=== PATIENT | male | born 1965 | race Caucasian/White ===

== ENCOUNTER 2018-01-12 20:55 | Emergency (ER) | payer OTHER ==
--- OUTSIDE RECORDS SUMMARY | 2018-01-12 21:03 | XMS REPORT ---
:1965 External Reference #:[id number] Author Organization [facility] Address [address] [place] [address] Phone [phone] Care Team Providers Name Role Phone Lilia Toth M.D. Care Team Information Automatic Lehr Operator Unavailable Lilia Toth M.D. Primary Care Physician Unavailable Payers Type Date Identification Payment Subscriber Numbers Provider Health Maintenance Effective: Policy Number: Placido Sernagilbertosarah Organization (O) 08/04/2012 [id number] [facility] Group Number: [id number] [id number] Group Name: [facility] [place] [address] PayID: [id number] Problems Date Description Provider Status Onset: 01/02/2012 Anxiety state Micheal Bell M.D. Active Onset: 01/02/2012 Mild recurrent major depression Micheal Bell M.D. Active Onset: 09/14/2012 Paroxysmal supraventricular Micheal Bell M.D. Active tachycardia Onset: 05/27/2014 Hyperlipidemia Flaco Galeana M.D. Active Onset: 01/18/2016 Psychogenic impotence Osiris Mooney Active Onset: 07/25/2015 Psychogenic impotence Flaco Galeana M.D. Inactive Inactive: 05/29/2016 Family History Date Family Member(s) Problem(s) Comments General No early myocardial infarction or cerebrovascular accident less than age 60, no colon or prostate cancer history Father Coronary Artery Disease (CAD) CABG. 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 at bedtime Viagra 07/25/ Active Tablets 50mg 9tabs 1 by mouth F52.21 2014 as directed Osiris Vu Clonazepam 08/08/ Active Tablets 0.5mg 60tab one tab by F41.1 Lilia 2010 s mouth twice [place], a day as M.D. needed Mirtazapine / Active Tablets 45mg 30tab take 1 F41.1 Eleazar Olivares 0000 s tablet at [place], bedtime Metoprolol / Active Tablets ER 25mg 1 by mouth Unknown Succinate ER 0000 24HR every day per Dr Jean-Baptiste Physical 03/26/ Hx treatment M54.5 Lilia Therapy 2016 - and [place], 05/29/ evaluation M.D. 2016 low back pain Atorvastatin 05/27/ Hx Tablets 10mg 30tab 1 by mouth 272.4 Flaco Galeana, Calcium 2014 - s every day M.D. 2014 Atenolol 02/23/ Hx Tablets 25mg 90tab 1 po qd 427.0 Micheal Quinonez 2012 - brayden Bell M.D. 2013 Sertraline HCL 01/01/ Hx Tablets 25mg 90tab 1 po qhs 300.00 Micheal Quinonez 2011 - brayden Bell M.D. 2012 Azithromycin 01/28/ Hx Tablets 250mg 6tabs 2 po today 465.9 Micheal Quinonez 2010 - and 1 po x Jayna Bell 01/01/ days 2011 Atenolol 08/27/ Hx Tablets 25mg 90tab 1 po qd 427.0 Micheal Quinonez 2010 - brayden Bell M.D. 2011 Serzone 12/10/ Hx Tablets 200mg 0tabs 1 po QHS Family 2006 - Medicine 08/08/ 2010 [facility] Remeron 12/10/ Hx Tablets 45mg 0tabs 1 po qd Family 2005 - Medicine 08/08/ Associates 2010 [facility] Keflex 12/10/ Hx Capsules 500mg 20cap 1 po bid Eleazar Gutierrez 2005 - s [place]abbie[place]owie, 08/08/ M.D. 2010 Augmentin 02/26/ Hx Tablets 500mg;125 20tab one tablet Ronda R 2005 - mg s three times Ottoniel, 12/10/ daily as [employer] 2006 directed for ten days Bactroban 02/26/ Hx 30gm apply to Ronda R Cream 2005 - affected Ottoniel, 12/10/ areas daily [employer] 2005 as directed Anusol HC Supp 07/31/ Hx 12uni 1 supp bid Forest Chun 2000 - ts Jayna De La Torre 2005 Klonopin 04/27/ Hx 0.5mg 1 po bid Family 2000 - Medicine 12/10/ Associates 2005 [facility] Remeron Soltab 04/27/ Hx 30mg Sampl one qd Mal Quinonez 2000 - es14 Amira, 12/10/ M.D. 2006 Naprosyn 06/12/ Hx Tabs 500mg 30tab 1 bid With Mal Quinonez 1999 - s Food Darlow, 06/22/ M.D. 1999 Keflex 01/24/ Hx 5Oomg 20uni 1 PO bid Pedro Olivares 1999 - ts Midura, 06/12/ M.D. 1999 Claritin 07/24/ Hx 10mg 30uni 1 qd Ginny 1998 - ts Mirella, 04/27/ Afnp-C 2000 Paxil 07/10/ Hx 10mg 0unit 1 PO qd Eleazar Gutierrez 1998 - s Shani, 04/27/ M.D. 2000 Serzone 07/10/ Hx 200mg 0unit 1 PO QHS Eleazar Gutierrez 1998 - s Shani, 04/27/ M.D. 2000 Amoxicillin 07/10/ Hx 250mg 30uni 1 PO tid Eleazar Gutierrez 1998 - ts Gabbie[place]owie, 07/24/ M.D. 1998 Zyrtec 12/06/ Hx 10mg 50uni 1 PO qd Eleazar Gutierrez 1997 - ts Shani, 07/10/ M.D. 1998 Clarinex 10/17/ Hx 10mg 50uni 1 qd Eleazar Gutierrez 1997 - ts Breiman, 12/06/ M.DLorena 1997 Zoloft 06/01/ Hx 50mg 45uni 1 08/05 Tabs Eleazar Gutierrez 1996 - ts PO qd Breiman, 07/10/ M.D. 1998 Clonazepam / Hx Tablets 0.5mg 1 po qd qhs Unknown 0000 - 2010 Immunizations CPT Code Status Date Vaccine Lot # [id number] Given 07/09/2015 Tdap Tetanus, W Pertussis 09327 Given 02/26/2005 Td Immunization, For Use In Individuals 7 Years Or Older Vital Signs Date Vital Result Comment 12/22/2017 BP Systolic 128 mmHg BP Diastolic 80 mmHg Heart Rate 84 /min Body Temperature 98.8 F Respiratory Rate 16 /min Height 70.5 inches 5'10.50" measured 08/11/17 Weight 196.38 lb BMI (Body Mass Index) 27.8 kg/m2 08/11/2017 BP Systolic 132 mmHg BP Diastolic 76 mmHg Heart Rate 72 /min Body Temperature 98.4 F Respiratory Rate 16 /min Height 70.5 inches 5'10.50" measured 08/11/17 Weight 198.12 lb BMI (Body Mass Index) 28.0 kg/m2 05/29/2016 BP Systolic 138 mmHg BP Diastolic 80 mmHg Heart Rate 78 /min Body Temperature 98.6 F Respiratory Rate 16 /min Height 71.25 inches 5'11.25" measured 05/29/16 Weight 189.25 lb BMI (Body Mass Index) 26.2 kg/m2 03/26/2016 BP Systolic 140 mmHg BP Diastolic 84 mmHg Heart Rate 76 /min Body Temperature 98.4 F Respiratory Rate 16 /min Height 70.5 inches 5'10.50" Weight 194.00 lb BMI (Body Mass Index) 27.4 kg/m2 01/18/2016 BP Systolic 122 mmHg BP Diastolic 74 mmHg Heart Rate 88 /min Body Temperature 98.9 F Respiratory Rate 18 /min Height 70.5 inches 5'10.50" Weight 192.00 lb BMI (Body Mass Index) 27.2 kg/m2 07/25/2015 BP Systolic 100 mmHg BP Diastolic 80 mmHg Heart Rate 68 /min Body Temperature 97.8 F Respiratory Rate 16 /min Height 70.5 inches 5'10.50" Weight 193.00 lb BMI (Body Mass Index) 27.3 kg/m2 06/20/2015 BP Systolic 132 mmHg BP Diastolic 88 mmHg Heart Rate 68 /min Body Temperature 97.3 F Respiratory Rate 16 /min Height 70.5 inches 5'10.50" Weight 185.00 lb BMI (Body Mass Index) 26.2 kg/m2 09/02/2014 BP Systolic 130 mmHg BP Diastolic 90 mmHg Heart Rate 68 /min Body Temperature 97.6 F Respiratory Rate 16 /min Height 70.5 inches 5'10.50" Weight 185.00 lb BMI (Body Mass Index) 26.2 kg/m2 05/27/2014 BP Systolic 120 mmHg BP Diastolic 80 mmHg Heart Rate 64 /min Body Temperature 97.5 F Respiratory Rate 18 /min Height 70.5 inches 5'10.50" Weight 189.00 lb BMI (Body Mass Index) 26.7 kg/m2 05/11/2014 BP Systolic 122 mmHg BP Diastolic 84 mmHg Heart Rate 83 /min Body Temperature 98.0 F Respiratory Rate 16 /min O2 % BldC Oximetry 98 % Height 70.75 inches 5'10.75" Weight 188.12 lb BMI (Body Mass Index) 26.4 kg/m2 04/06/2014 BP Systolic 124 mmHg BP Diastolic 80 mmHg Heart Rate 66 /min Body Temperature 97.4 F Respiratory Rate 18 /min Height 70.75 inches 5'10.75" Weight 189.00 lb BMI (Body Mass Index) 26.5 kg/m2 03/15/2013 BP Systolic 116 mmHg BP Diastolic 76 mmHg Heart Rate 68 /min Body Temperature 98.4 F Respiratory Rate 18 /min Height 70.75 inches 5'10.75" Weight 185.00 lb BMI (Body Mass Index) 26.0 kg/m2 Right Visual Acuity Distance 20/30 no corrective lenses Left Visual Acuity Distance 20/25 no corrective lenses 09/14/2012 BP Systolic 108 mmHg BP Diastolic 80 mmHg Heart Rate 66 /min Body Temperature 96.6 F Height 70.75 inches 5'10.75" Weight 190.38 lb BMI (Body Mass Index) 26.7 kg/m2 03/13/2012 BP Systolic 136 mmHg BP Diastolic 70 mmHg Heart Rate 72 /min Body Temperature 97.2 F Height 70.75 inches 5'10.75" Weight 183.00 lb BMI (Body Mass Index) 25.7 kg/m2 01/02/2012 BP Systolic 128 mmHg BP Diastolic 80 mmHg Heart Rate 72 /min Body Temperature 97.8 F Height 70.75 inches 5'10.75" Weight 180.00 lb BMI (Body Mass Index) 25.3 kg/m2 01/28/2011 BP Systolic 120 mmHg BP Diastolic 80 mmHg Heart Rate 76 /min Body Temperature 98.2 F Respiratory Rate 12 /min O2 % BldC Oximetry 96 % Ra Height 70.75 inches 5'10.75" Weight 190.00 lb BMI (Body Mass Index) 26.7 kg/m2 12/18/2010 BP Systolic 130 mmHg BP Diastolic 80 mmHg Heart Rate 68 /min Body Temperature 97.9 F Respiratory Rate 16 /min Height 70.75 inches 5'10.75" Weight 190.00 lb BMI (Body Mass Index) 26.7 kg/m2 10/02/2010 BP Systolic 120 mmHg BP Diastolic 80 mmHg Heart Rate 68 /min Body Temperature 98.2 F Height 70.75 inches 5'10.75" measured Weight 194.00 lb BMI (Body Mass Index) 27.2 kg/m2 08/27/2010 BP Systolic 112 mmHg BP Diastolic 78 mmHg Heart Rate 78 /min Body Temperature 97.6 F Height 70.75 inches 5'10.75" measured Weight 191.00 lb BMI (Body Mass Index) 26.8 kg/m2 08/08/2010 BP Systolic 138 mmHg BP Diastolic 90 mmHg Heart Rate 102 /min Body Temperature 98.8 F Respiratory Rate 18 /min O2 % BldC Oximetry 98 % Height 70.75 inches 5'10.75" measured Weight 191.00 lb BMI (Body Mass Index) 26.8 kg/m2 07/21/2007 BP Systolic 114 mmHg BP Diastolic 68 mmHg Heart Rate 72 /min Body Temperature 97.1 F Height 71.00 inches 5'11" Weight 195.00 lb BMI (Body Mass Index) 27.2 kg/m2 11/21/2006 BP Systolic 150 mmHg BP Diastolic 90 mmHg Heart Rate 100 /min Body Temperature 100.0 F Height 71.00 inches 5'11" Weight 190.00 lb BMI (Body Mass Index) 26.5 kg/m2 12/20/2005 BP Systolic 112 mmHg BP Diastolic 80 mmHg Heart Rate 76 /min Body Temperature 98.2 F Height 71.00 inches 5'11" Weight 192.00 lb BMI (Body Mass Index) 26.8 kg/m2 12/18/2005 Heart Rate 80 /min Body Temperature 98.5 F Height 71.00 inches 5'11" Weight 192.00 lb BMI (Body Mass Index) 26.8 kg/m2 12/10/2005 BP Systolic 126 mmHg BP Diastolic 88 mmHg Heart Rate 90 /min Body Temperature 98.8 F Height 71.00 inches 5'11" Weight 190.00 lb BMI (Body Mass Index) 26.5 kg/m2 02/26/2005 BP Systolic 126 mmHg BP Diastolic 82 mmHg Heart Rate 62 /min Height 71.00 inches 5'11" Weight 186.00 lb BMI (Body Mass Index) 25.9 kg/m2 10/18/2003 BP Systolic 126 mmHg BP Diastolic 80 mmHg Heart Rate 66 /min Body Temperature 98.6 F Height 71.00 inches 5'11" Weight 185.00 lb BMI (Body Mass Index) 25.8 kg/m2 09/25/2001 BP Systolic 104 mmHg BP Diastolic 70 mmHg Heart Rate 72 /min Height 71.00 inches 5'11" Weight 182.00 lb BMI (Body Mass Index) 25.4 kg/m2 07/31/2001 BP Systolic 130 mmHg BP Diastolic 90 mmHg Heart Rate 80 /min Height 71.00 inches 5'11" Weight 180.00 lb BMI (Body Mass Index) 25.1 kg/m2 04/27/2001 BP Systolic 112 mmHg BP Diastolic 80 mmHg Height 71.00 inches 5'11" Weight 175.00 lb BMI (Body Mass Index) 24.4 kg/m2 03/27/2001 BP Systolic 118 mmHg BP Diastolic 62 mmHg Heart Rate 76 /min Body Temperature 98.0 F Respiratory Rate 14 /min Height 71.00 inches 5'11" Weight 178.00 lb BMI (Body Mass Index) 24.8 kg/m2 06/12/2000 BP Systolic 108 mmHg BP Diastolic 70 mmHg Body Temperature 97.9 F Height 71.00 inches 5'11" Weight 176.00 lb BMI (Body Mass Index) 24.5 kg/m2 02/01/2000 Body Temperature 97.0 F Height 71.00 inches 5'11" Weight 180.00 lb BMI (Body Mass Index) 25.1 kg/m2 01/25/2000 BP Systolic 130 mmHg BP Diastolic 80 mmHg Body Temperature 98.1 F Height 71.00 inches 5'11" Weight 180.00 lb BMI (Body Mass Index) 25.1 kg/m2 07/24/1999 Body Temperature 97.5 F Height 71.00 inches 5'11" 07/10/1999 BP Systolic 134 mmHg BP Diastolic 74 mmHg Body Temperature 97.3 F Height 71.00 inches 5'11" Weight 184.00 lb BMI (Body Mass Index) 25.7 kg/m2 12/06/1997 Body Temperature 98.0 F Height 71.00 inches 10/14/1997 BP Systolic 124 mmHg BP Diastolic 80 mmHg Body Temperature 98.2 F Height 71.00 inches 5'11" Weight 178.00 lb 06/01/1997 BP Systolic 142 mmHg BP Diastolic 80 mmHg Body Temperature 98.4 F Height 71.00 inches 5'11" Weight 186.50 lb 186 lbs. 8 ozs. Up 11.5 LBS Results Test Date Test Result H/L Range Note Comprehensive Metabolic Prof 12/15/2017 Sodium 137 mEq/L 134-149 Potassium 4.6 mEq/L 3.6-5.5 Chloride 96 mEq/L 94-112 Carbon Dioxide 26 mEq/L 21-32 Glucose 105 mg/dL 70-105 BUN 16 mg/dL 6-26 Creatinine 1.0 mg/dL 0.6-1.4 BUN/Creat Ratio 16.0 CALC 8.0-36.0 Calcium 9.2 mg/dL 8.6-10.2 Total Protein 7.5 g/dL 6.4-8.3 Albumin 4.5 g/dL 3.8-5.5 Globulin 3.0 g/dL 2.0-4.8 A/G Ratio 1.5 CALC 0.6-2.3 Alk. Phosphatase 82 U/L 22-95 Alt (SGPT) 35 U/L 7-35 Ast (Sgot) 24 U/L 5-34 Total Bilirubin 0.6 mg/dL 0.2-1.3 GFR Non- >60 ml/min/1.73m^ >=60 GFR >60 ml/min/1.73m^ >=60 Lipid Profile 12/15/2017 Cholesterol 232 mg/dL High 120-200 Triglycerides 213 mg/dL High 30-200 HDL Cholesterol 44 mg/dL 30-70 LDL (Calculated) 145 CALC High 0-129 VLDL Cholesterol 43 mg/dL 0-50 HDL Risk Factor 5.3 CALC High 0.0-4.4 CBC Electronic [facility] 12/15/2017 WBC 6.7 x10^3/UL 4.0-10.0 RBC 4.63 x10^6/UL 3.93-6.00 HGB 14.8 g/dL 12.0-17.0 HCT 43 % 35-50 MCV 92.4 fL 80.0-95.0 MCH 32.0 pg 25.6-32.2 MCHC 34.6 g/dL 32.2-36.0 RDW-CV 12.8 % 11.6-14.4 PLT 275 x10^3/UL 163-400 MPV 9.4 fL 9.4-12.4 Dwain# 3.95 x10^3/UL 1.56-6.13 Lymph# 1.90 x10^3/UL 1.18-3.74 Nye# 0.64 x10^3/UL 0.24-0.82 Eos # 0.2 x10^3/UL 0.0-0.5 Baso # 0.02 x10^3/UL 0.01-0.08 Dwain% 59.3 % 34.0-70.0 Lymph % 28.5 % 20.0-52.0 Nye% 9.6 % 5.0-12.0 Eos% 2.3 % 0.7-7.0 Baso% 0.3 % 0.1-1.2 Comprehensive Metabolic Prof 06/06/2017 Sodium 137 mEq/L 134-149 Potassium 3.9 mEq/L 3.6-5.5 Chloride 99 mEq/L 94-112 Carbon Dioxide 23 mEq/L 21-32 Glucose 99 mg/dL 70-105 BUN 14 mg/dL 6-26 Creatinine 0.9 mg/dL 0.6-1.4 BUN/Creat Ratio 15.6 CALC 8.0-36.0 Calcium 8.7 mg/dL 8.6-10.2 Total Protein 6.9 g/dL 6.4-8.3 Albumin 4.5 g/dL 3.8-5.5 Globulin 2.4 g/dL 2.0-4.8 A/G Ratio 1.9 CALC 0.6-2.3 Alk. Phosphatase 77 U/L 22-95 Alt (SGPT) 41 U/L High 7-35 Ast (Sgot) 28 U/L 5-34 Total Bilirubin 0.6 mg/dL 0.2-1.3 GFR Non- >60 ml/min/1.73m^ >=60 GFR >60 ml/min/1.73m^ >=60 Lipid Profile 06/06/2017 Cholesterol 204 mg/dL High 120-200 Triglycerides 246 mg/dL High 30-200 HDL Cholesterol 32 mg/dL 30-70 LDL (Calculated) 123 CALC 0-129 VLDL Cholesterol 49 mg/dL 0-50 HDL Risk Factor 6.4 CALC High 0.0-4.4 Complete Blood Count 06/06/2017 WBC 5.3 x10^3/UL 3.6-9.6 RBC 4.60 x10^6/UL 3.90-5.70 HGB 14.6 g/dL 12.1-17.2 HCT 43 % 36-50 MCV 92.0 fL 82.2-97.4 MCH 31.8 pg 27.6-33.3 MCHC 34.4 g/dL 33.0-35.5 RDW 13.5 % 11.6-13.7 PLT 292 x10^3/UL 150-400 MPV 7.2 fL Low 7.4-10.4 Gran # 3.5 x10^3/UL 1.5-7.2 Lymph# 1.5 x10^3/UL 0.7-4.9 Nye# 0.3 x10^3/UL 0.1-0.9 Gran % 64.2 % 42.2-75.2 Lymph % 29.7 % 20.5-51.1 Nye% 6.1 % 1.7-9.3 Laboratory test finding 06/06/2017 PSA 0.2 ng/mL 0.0-4.0 Comprehensive Metabolic Prof 05/17/2016 Sodium 138 mEq/L 134-149 Potassium 4.8 mEq/L 3.6-5.5 Chloride 99 mEq/L 94-112 Carbon Dioxide 27 mEq/L 21-32 Glucose 97 mg/dL 70-105 BUN 16 mg/dL 6-26 Creatinine 0.9 mg/dL 0.6-1.4 BUN/Creat Ratio 17.8 CALC 8.0-36.0 Calcium 9.6 mg/dL 8.6-10.2 Total Protein 7.7 g/dL 6.4-8.3 Albumin 4.8 g/dL 3.8-5.5 Globulin 2.9 g/dL 2.0-4.8 A/G Ratio 1.7 CALC 0.6-2.3 Alk. Phosphatase 87 U/L 22-95 Alt (SGPT) 29 U/L 7-35 Ast (Sgot) 25 U/L 5-34 Total Bilirubin 0.6 mg/dL 0.2-1.3 GFR Non- >60 ml/min/1.73m^ >=60 GFR >60 ml/min/1.73m^ >=60 Complete Blood Count 05/17/2016 WBC 5.6 x10^3/UL 3.6-9.6 RBC 4.83 x10^6/UL 3.90-5.70 HGB 15.3 g/dL 12.1-17.2 HCT 45 % 36-50 MCV 93.0 fL 82.2-97.4 MCH 31.6 pg 27.6-33.3 MCHC 34.0 g/dL 33.0-35.5 RDW 13.6 % 11.6-13.7 PLT 294 x10^3/UL 150-400 MPV 6.2 fL Low 7.4-10.4 Gran # 3.9 x10^3/UL 1.5-7.2 Lymph# 1.5 x10^3/UL 0.7-4.9 Nye# 0.2 x10^3/UL 0.1-0.9 Gran % 68.8 % 42.2-75.2 Lymph % 26.7 % 20.5-51.1 Nye% 4.5 % 1.7-9.3 Laboratory test finding 05/17/2016 PSA 0.3 ng/mL 0.0-4.0 Lipid Profile 05/17/2016 Cholesterol 208 mg/dL High 120-200 Triglycerides 122 mg/dL 30-200 HDL Cholesterol 37 mg/dL 30-70 LDL (Calculated) 147 CALC High 0-129 VLDL Cholesterol 24 mg/dL 0-50 HDL Risk Factor 5.6 CALC High 0.0-4.4 Lipid Profile 08/26/2014 Cholesterol 161 mg/dL 120-200 Triglycerides 88 mg/dL 30-200 HDL Cholesterol 34 mg/dL 30-70 LDL (Calculated) 109 CALC 0-129 VLDL Cholesterol 18 mg/dL 0-50 HDL Risk Factor 4.7 CALC High 0.0-4.4 Comprehensive Metabolic Prof 08/26/2014 Sodium 140 mEq/L 134-149 Potassium 4.6 mEq/L 3.6-5.5 Chloride 97 mEq/L 94-112 Carbon Dioxide 28 mEq/L 21-32 Glucose 93 mg/dL 70-105 BUN 13 mg/dL 6-26 Creatinine 1.0 mg/dL 0.6-1.4 BUN/Creat Ratio 13.0 CALC 8.0-36.0 Calcium 9.0 mg/dL 8.6-10.2 Total Protein 7.2 g/dL 6.4-8.3 Albumin 4.3 g/dL 3.8-5.5 Globulin 2.9 g/dL 2.0-4.8 A/G Ratio 1.5 CALC 0.6-2.3 Alk. Phosphatase 78 U/L 22-95 Alt (SGPT) 30 U/L 7-35 Ast (Sgot) 25 U/L 5-34 Total Bilirubin 0.7 mg/dL 0.2-1.3 Comprehensive Metabolic Prof 05/20/2014 Sodium 142 mEq/L 134-149 Potassium 4.7 mEq/L 3.6-5.5 Chloride 98 mEq/L 94-112 Carbon Dioxide 26 mEq/L 21-32 Glucose 103 mg/dL 70-105 BUN 14 mg/dL 6-26 Creatinine 1.0 mg/dL 0.6-1.4 BUN/Creat Ratio 14.0 CALC 8.0-36.0 Calcium 9.4 mg/dL 8.6-10.2 Total Protein 8.0 g/dL 6.4-8.3 Albumin 4.7 g/dL 3.8-5.5 Globulin 3.3 g/dL 2.0-4.8 A/G Ratio 1.4 CALC 0.6-2.3 Alk. Phosphatase 86 U/L 22-95 Alt (SGPT) 35 U/L 7-35 Ast (Sgot) 26 U/L 5-34 Total Bilirubin 0.6 mg/dL 0.2-1.3 Lipid Profile 05/20/2014 Cholesterol 231 mg/dL High 120-200 Triglycerides 213 mg/dL High 30-200 HDL Cholesterol 39 mg/dL 30-70 LDL (Calculated) 149 CALC High 0-129 VLDL Cholesterol 43 mg/dL 0-50 HDL Risk Factor 5.9 CALC High 0.0-4.4 Complete Blood Count 05/20/2014 WBC 6.3 x10^3/UL 3.6-9.6 RBC 4.76 x10^6/UL 3.90-5.70 HGB 15.5 g/dL 12.1-17.2 HCT 45 % 36-50 MCV 93.0 fL 82.2-97.4 MCH 32.5 pg 27.6-33.3 MCHC 34.8 g/dL 33.0-35.5 RDW 11.8 % 11.6-13.7 PLT 314 x10^3/UL 150-400 MPV 6.9 fL Low 7.4-10.4 Gran # 4.6 x10^3/UL 1.5-7.2 Lymph# 1.4 x10^3/UL 0.7-4.9 Nye# 0.3 x10^3/UL 0.1-0.9 Gran % 72.5 % 42.2-75.2 Lymph % 22.2 % 20.5-51.1 Nye% 5.3 % 1.7-9.3 Lipid Profile 03/03/2013 Cholesterol 202 mg/dL High 120-200 HDL 35 mg/dL 30-70 Triglycerides 204 mg/dL High 30-200 HDL Risk Factor 5.8 CALC High 0.0-4.4 LDL (Calculated) 126 CALC 0-129 VLDL (Calculated) 41 mg/dL 0-50 CBC Electronic (a) 03/03/2013 WBC 5.7 3.6-9.6 RBC 4.63 3.90-5.70 Hemoglobin (Fma/CMC/CTX) 14.5 g/dL 12.1 - 17.2 Hematocrit (Fma/CMC/CTX) 43.4 % 36.1 - 50.3 Platelets 272 10^3/ul 150-400 Lymph% 26.9 20.5-51.1 Mixed% 5.3 Neutrophils % 67.8 Mean Corpuscular Vol 94 82.2-97.4 Mean Corpuscular Hemoglobin 31.4 27.6-33.3 Mean Corpuscular Hemo Concen 33.6 32.0-36.0 RDW 12.1 11.6-13.7 Mean Platelet Volume 6.9 6.5-11.0 Comprehensive Metabolic Prof 03/03/2013 Albumin 4.6 g/dL 3.8-5.5 Alk. Phos. 75 U/L 22-95 Alt (SGPT) 24 U/L 10-40 Ast (Sgot) 24 U/L 5-34 BUN 18 mg/dL 6-26 Calcium 8.9 mg/dL 8.6-10.2 Chloride 97 mEq/L 94-112 Creatinine 1.0 mg/dL 0.6-1.4 Carbon Dioxide 26 mEq/L 21-32 Glucose 98 mg/dL 70-105 Sodium 136 mEq/L 134-149 Total Bilirubin 0.7 mg/dL 0.2-1.3 Total Protein 7.4 g/dL 6.3-8.1 Potassium 4.3 mEq/L 3.6-5.5 Globulin 2.9 g/dL 2.0-4.8 A/G Ratio 1.6 Calc 0.6-2.3 BUN/Creat Ratio 17.0 Calc 8.0-36.0 Laboratory test finding 03/03/2013 TSH 1.26 mIU/L 0.50-6.00 Ua - Non Micro (a) 03/03/2013 Appearance clear Color yellow Glucose, Urine (Fma/CMC/CTX) neg Bilirubin neg Ketones neg SP Grav 1.015 Blood neg PH 8.0 Protein neg Urobil 0.2 Nitrite neg Leukocytes (Fma/CMC/Centrex) neg Lipid Profile 12/18/2010 Cholesterol 221 mg/dL High 120-200 HDL 36 mg/dL 30-70 Triglycerides 229 mg/dL High 30-200 HDL Risk Factor 6.2 CALC High 0.0-4.0 LDL (Calculated) 139 CALC High 0-129 VLDL (Calculated) 46 mg/dL 0-50 Basic Metabolic Profile 12/18/2010 BUN 18 mg/dL 6-26 Calcium 9.0 mg/dL 8.6-10.2 Chloride 100 mEq/L 94-112 Creatinine 1.0 mg/dL 0.6-1.4 Carbon Dioxide 26 mEq/L 21-32 Glucose 101 mg/dL 70-105 Sodium 143 mEq/L 134-149 Potassium 4.9 mEq/L 3.6-5.5 BUN/Creat Ratio 18.1 Calc 8.0-36.0 Ua - Non Micro (Fma) 12/18/2010 Appearance CLEAR Color YELLOW Glucose, Urine (Fma/CMC/CTX) NEG Bilirubin NEG Ketones NEG SP Grav 1.010 Blood NEG PH 7.0 Protein NEG Urobil 0.2 Nitrite NEG Leukocytes (a/CMC/Centrex) NEG Laboratory test finding 08/08/2010 Troponin < 0.06 ng/ml Low 0.00-2.30 1 TSH 2.12 mIU/L 0.50-6.00 Comprehensive Metabolic Prof 08/08/2010 Albumin 4.8 g/dL 3.8-5.5 Alk. Phos. 80 U/L 22-95 Alt (SGPT) 43 U/L High 10-40 2 Ast (Sgot) 28 U/L 5-34 BUN 13 mg/dL 6-26 Calcium 9.6 mg/dL 8.6-10.2 Chloride 101 mEq/L 94-112 Creatinine 0.9 mg/dL 0.6-1.4 Carbon Dioxide 28 mEq/L 21-32 Glucose 95 mg/dL 70-105 Sodium 139 mEq/L 134-149 Total Bilirubin 0.4 mg/dL 0.2-1.3 Total Protein 7.6 g/dL 6.3-8.1 Potassium 4.3 mEq/L 3.6-5.5 Globulin 2.8 g/dL 2.0-4.8 A/G Ratio 1.7 Calc 0.6-2.2 BUN/Creat Ratio 14.2 Calc 8.0-36.0 CBC ([facility]) 08/08/2010 WBC 6.1 3.6-9.6 RBC 4.66 3.90-5.70 Hemoglobin (a/CMC/CTX) 14.6 g/dL 12.1 - 17.2 Hematocrit (a/CMC/CTX) 43.2 % 36.1 - 50.3 Platelets 317 10^3/ul 150-400 Lymph% 21.9 20.5-51.1 Mixed% 4.3 Neutrophils % 73.8 Mean Corpuscular Vol 93 82.2-97.4 Mean Corpuscular Hemoglobin 31.3 27.6-33.3 Mean Corpuscular Hemo Concen 33.7 32.0-36.0 RDW 12.4 11.6-13.7 Mean Platelet Volume 6.8 6.5-11.0 Basic Metabolic Panel 03/13/2007 One Over Creatinine 1.11 3 Anion Gap 7.0 mmol/L 2-11 3, 4 BUN 13 mg/dL 6-24 3 Calcium 8.5 mg/dL Low 8.7-10.2 3 Chloride 103 mmol/L 101-111 3 Co2 (Carbon Dioxide) 26.0 mmol/L 22-32 3 Glucose 97 mg/dL 70-105 3 Potassium 4.2 mmol/L 3.5-5.0 3 Sodium 136 mmol/L 135-145 3 BUN/Creatinine Ratio 14.4 8-20 3 Creatinine 0.9 mg/dL 0.5-1.4 3 CBC With Electronic Diff 01/19/2007 White Blood Count 6.9 CUMM 4.8-10.8 Abs Basophils 0 0-0.2 Abs Eosinophils 0 0-0.6 Absolute Neutrophil Count 4.9 1.5-7.7 Abs Lymphs 1.4 1.0-4.8 Abs Mononuclear 0.5 0-0.8 Basophil % 0.3 % 0-2 Hematocrit 43 % 42-52 Hemoglobin 14.9 g/dL 14.0-18.0 Eosinophil % 0.5 % 0-6 Gran % 71.5 % 38-83 Lymph % 20.4 % 20-45 Mean Corpuscular HGB Cone 35 g/dL 32-36 Mean Corpuscular Hemoglob 32 pg High 27-31 Mean Corpuscular Volume 91 um3 80-94 Mean Platelet Volume 7.2 um3 Low 7.4-10.4 Mononuclear % 7.3 % 1-9 Platelet Count 305 CUMM 150-450 Red Cell Count 4.70 CUMM 4.6-6.2 Redcell Distribution WDTH 13 % 10.5-15 Laboratory test finding 01/19/2007 [facility] [place] [facility] See Image Report Comp Stat 08/11/2006 One Over Creatinine 1.00 Anion Gap 9.0 mmol/L 2-11 5 Albumin/Globulin Ratio 1.5 1-3 Albumin 4.6 GM/DL 3.6-5.4 Alkaline Phosphatase 98 U/L 39-117 Alt (SGPT) 61 U/L 17-63 Ast (Sgot) 43 U/L High 12-42 BUN 12 mg/dL 6-24 Calcium 9.0 mg/dL 8.7-10.2 Chloride 100 mmol/L Low 101-111 Co2 (Carbon Dioxide) 28.0 mmol/L 22-32 Globulin 3.0 GM/DL 2-4 Glucose 120 mg/dL High 70-105 Potassium 3.4 mmol/L Low 3.5-5.0 Sodium 137 mmol/L 135-145 Bilirubin Total 1.0 mg/dL 0.4-1.5 Total Protein 7.6 GM/DL 6.2-8.1 BUN/Creatinine Ratio 12.0 8-20 Creatinine 1.0 mg/dL 0.5-1.4 Laboratory test finding 08/11/2006 Troponin-I (TnI) 0.01 NG/ML 0-0.06 6 CBC With Electronic Diff Stat 08/11/2006 White Blood Count 9.8 CUMM 4.8- 10.8 Abs Basophils 0 0-0.2 Abs Eosinophils 0.1 0-0.6 Absolute Neutrophil Count 6.5 1.5-7.7 Abs Lymphs 2.6 1.0-4.8 Abs Mononuclear 0.6 0-0.8 Basophil % 0.5 % 0-2 Hematocrit 44 % 42-52 7 Hemoglobin 15.7 g/dL 14.0-18.0 8 Eosinophil % 0.9 % 0-6 Gran % 66.3 % 38-83 Lymph % 26.6 % 20-45 Mean Corpuscular HGB Cone 36 g/dL 32-36 Mean Corpuscular Hemoglob 32 pg High 27-31 Mean Corpuscular Volume 90 um3 80-94 Mean Platelet Volume 7.0 um3 Low 7.4-10.4 Mononuclear % 5.7 % 1-9 Platelet Count 394 CUMM 150-450 Red Cell Count 4.88 CUMM 4.6-6.2 Redcell Distribution WDTH 13 % 10.5-15 Protime Stat 08/11/2006 Inr 1.02 9 Protime 12.1 10.9-13.1 PTT (Aptt) Stat 08/11/2006 PTT (Aptt) 23.6 20.4-29.5 10 CKMB 08/11/2006 CK For CKMB 202 U/L High 0-200 % CKMB 1 %MB 0-9 11 CKMB In NG/ML 2.2 NG/ML 0.3-4.0 Basic Metabolic (Fma) 04/15/2002 BUN 13 7-26 Calcium 9.0 mg/dL 8.6-10.0 Creatinine 0.8 mg/dL 0.6-1.4 Glucose 90 mg/dL 70 - 118 Sodium 147 134-149 Potassium 4.7 3.6-5.5 Chloride 100 mEq/L 94-112 Co2 26 21-32 Lipid Profile (Fma) 04/15/2002 Cholesterol 180 mg/dL 140-200 Triglyceride 92 mg/dL 30-150 VLDL 18 0-50 LDL-Calculated 126 0-160 HDL-Chol 36 30-70 Laboratory test finding 04/28/2001 Cortisol 21.5 Am8.7-22.4;PM<10 Dehydroepiandrosterone 553 270.0-930.0 Laboratory test finding 04/28/2001 Glucose 94 mg/dL 70 - 118 TSH 1.04 0.4-4.2 Laboratory test finding 03/27/2001 Throat Culture NEGATIVE 1 RESULT PAYTON'D 2 RESULT REKC'D 3 COMMENTS? PREOPERATIVE LAB DRAW STAT 4 Anion gap measurement may be of limited value in the presence of any alkalosis, especially in a combined acid base disorder. . 5 Anion gap measurement may be of limited value in the presence of any alkalosis, especially in a combined acid base disorder. . 6 New Reference Range and Interpretation effective 05/07/02 TnI (ng/ml) INTERPRETATION <0.06 ng/ml NOT SUPPORTIVE OF DIAGNOSIS OF UT 0.06 - 0.50 ng/ml INDETERMINATE: SUGGEST SERIAL STUDIES IF CLINICALLY INDICATED. > 0.5 ng/ml CONSISTENT WITH DIAGNOSIS OF UT . 7 H H Check Failed 8 RESULTS VERIFIED BY REPEAT ANALYSIS ON THE SAME SAMPLE. REPEATED RESULT IS:15.7 R 9 MI VALUE=2.00 ( OF 05/20/06) Recommended INR for Patients on Oral Anticoagulants Prophylaxis 2.0 - 3.0 Treatment of thrombosis 2.0 - 3.0 Prevention of embolism 2.0 - 3.0 Prevention of embolism from prosthetic heart valves 2.5 - 3.5 10 PLEASE NOTE NEW REFERENCE RANGE EFFECTIVE 05 11 INTERPRETATION %CK-MB < 5% NOT SUPPORTIVE OF DIAGNOSIS OF UT 5 - <10% INDETERMINATE; SUGGEST SERIAL STUDIES IF CLINICALLY INDICATED 10% OR > CONSISTENT WITH DIAGNOSIS OF UT . Procedures Date CPT Code Description Status 08/11/2017 53084 [facility] Completed 11/25/2016 Colonoscopy Completed 05/29/2016 01956 [facility] Com[facility] 05/29/2016 62955 Electrocardiogram Complete Completed 05/27/2014 44888 [facility] SHQ Completed 05/11/2014 12153 Pulse Oximetry Completed 03/15/2013 95725 [facility] SHQ Completed 03/15/2013 32974 Vision Test- screening test of visual acuity, Completed quantitative, bila 01/28/2011 39922 Pulse Oximetry Completed 08/08/2010 28639 Pulse Oximetry Completed 08/08/2010 16228 Electrocardiogram Complete Completed 12/18/2005 30215 I & D Abscess Simple Completed Encounters Type Date Location Provider CPT E/M Dx Office Visit 05/29/2016 10:30a [facility] Office Lilia Toth M.D. 30871 Z00.00 F41.1 I47.1 E78.5 Z12.11 Office Visit 03/26/2016 3:20p [facility] Office Lilia Toth M.D. 16391 M54.5 Office Visit 01/18/2016 4:45p [facility] Office Osiris Mooney 71810 F41.1 F33.0 F52.21 Office Visit 07/25/2015 11:30a [facility] Office Flaco Galeana M.D. 89582 F52.21 F41.1 I47.1 Office Visit 06/20/2015 11:00a [facility] Office Flaco Galeana M.D. 30090 F41.1 Office Visit 09/02/2014 1:00p [facility] Office Flaco Galeana M.D. 63989 272.4 Office Visit 05/27/2014 1:00p [facility] Office Flaco Galeana M.D. 46804 V70.0 272.4 300.00 427.0 296.31 Office Visit 05/11/2014 3:00p [facility] Office Osiris Mooney 38306 786.07 Office Visit 04/06/2014 7:50p Main Office Flaco Galeana M.D. 09019 427.0 300.00 296.31 Office Visit 09/14/2012 1:10p [facility] Office Micheal Bell M.D. 93123 296.31 300.00 427.0 Office Visit 03/13/2012 9:50a [facility] Office Micheal Bell M.D. 39154 V70.0 V77.91 300.00 296.31 V77.0 V76.41 Office Visit 01/02/2012 2:50p [facility] Office Micheal Bell M.D. 59665 300.00 296.31 Office Visit 01/28/2011 3:20p [facility] Micheal Bell M.D. 59433 465.9 Office Visit 12/18/2010 9:00a [facility] Micheal Bell M.D. 78176 V70.0 V77.91 300.00 296.31 427.0 Office Visit 10/02/2010 1:40p [facility] Micheal Bell M.D. 55875 300.00 427.0 296.31 Office Visit 08/27/2010 1:40p [facility] Micheal Bell M.D. 89166 300.00 427.0 296.31 Office Visit 08/08/2010 3:00p [facility] Micheal Bell M.D. 87649 786.50 427.0 300.00 Office Visit 07/21/2007 9:00a [facility] Eleazar Mcleod M.D. 55886 719.46 Office Visit 11/21/2006 3:00p [facility] Manuel Esposito M.D. 05956 566 Office Visit 12/20/2005 1:00p [facility] Eleazar Mcleod M.D. 85764 682.2 Office Visit 12/10/2005 4:10p [facility] Eleazar Mcleod M.D. 46395 706.2 Office Visit 02/26/2005 6:15p [facility] YESI Dean-C 36759 680.6 Office Visit 10/18/2003 1:30p [facility] Office Ginny Vu ewelina-C 04810 465.9 Office Visit 07/31/2001 1:10p [facility] Office Forest De La Torre M.D. 21213 Office Visit 04/27/2001 2:10p [facility] Mal Collier M.D. 59383 Office Visit 03/27/2001 2:15p [facility] YESI Levine 75442 Office Visit 06/12/2000 6:10p [facility] Office Mal Collier M.D. 51869 Plan of Care 12/22/2017 - Lilia Toth M.D.E78.5 Hyperlipidemia, unspecifiedNew Labs:CCC- Comp+Lipid (Fma)Comments:Goal LDL is <130, HDL >40, Triglycerides < 200 discussed diet changes vs geneticsFollow up:fasting labs 6 moF33.0 Major depressive disorder, recurrent, mildComments:stable on regimen; call if symptoms [id number] Impaired fasting glucoseNew Labs:Hemoglobin A1c (Fma) Comments:Counseled on heart healthy diet and exercise; limiting carbs and portion control, at least 30 minutes of physical activity daily; consider Mediterranean diet as a guide for healthy eating ; A1c> 6.5is diagnostic of diabetesAllComments:~B_~U_Medication Management~b_~u_ Patient Understands medications he's taking? Yes No Are there Barriers to Adherence? Yes No Has the patient been asked about herbal supplements and therapies, and OTC meds? Yes No
[2018-01-12 21:29] VITALS: BP 146/101
--- NOTE | 2018-01-12 22:09 | UC ---
Respiratory Complaint HPI - HPI Summary HPI Summary: 52 y/o male presents to the urgent care c/o dry cough, w/ sinus congestion and clear nasal discharge for the past 3 weeks. C/O "COLD" 3 WEEKS AGO AND STATES HE HAS NOT REALLY FELT ANY BETTER. STATES HE WAS WEED-EATING OUTSIDE YESTERDAY AND FELT LIKE HE HAD ASTHMA, WHEEZING, TIGHTNESS IN CHEST. PT STATES HE HAS BEEN TAKING GUAIFENESIN WITH SOME RELIEF. ALSO C/O RASH. - History of Current Complaint Chief Complaint: UCRespiratory Stated Complaint: COLD,COUGH CONGESTION Time Seen by Provider: 01/12/18 21:47 Hx Obtained From: Patient Onset/Duration: Gradual Onset, Lasting Weeks - 3 weeks, Worse Since Timing: Constant Severity Initially: Mild Severity Currently: Moderate Pain Intensity: 5 Pain Scale Used: 0-10 Numeric Character: Cough: Nonproductive Aggravating Factors: Recumbent Position Alleviating Factors: Spontaneous Resolution Associated Signs And Symptoms: Positive: URI, Nasal Congestion, Sinus Discomfort Related History: Seasonal Allergies - Risk Factors Pulmonary Embolism Risk Factors: Negative Cardiac Risk Factors: Negative Pseudomonas Risk Factors: Negative Tuberculosis Risk Factors: Negative - Allergies/Home Medications Allergies/Adverse Reactions: Allergies Allergy/AdvReac Type Severity Reaction Status Date / Time No Known Allergies Allergy Verified 01/12/18 21:29 Home Medications: Home Medications Corral-3 Fatty Acids (Nf) [Fish Oil (NF)] 01/12/18 [History] guaiFENesin [Guaifenesin ER] 600 mg PO 01/12/18 [History] PMH/Surg Hx/FS Hx/Imm Hx Previously Healthy: Yes Endocrine History: Dyslipidemia Cardiovascular History: Hypertension Other Cardiovascular History: PSVT - Surgical History Surgical History: None - Family History Known Family History: Positive: Cardiac Disease - Social History Occupation: Employed Full-time Lives: With Family Alcohol Use: Occasionally Substance Use Type: None Smoking Status (MU): Never Smoked Tobacco Review of Systems Constitutional: Negative Skin: Negative Eyes: Negative ENT: Negative, Nasal Discharge, Sinus Congestion Respiratory: Shortness Of Breath - at times, Cough - dry, Other - wheezing Cardiovascular: Negative Gastrointestinal: Negative Genitourinary: Negative Motor: Negative Neurovascular: Negative Musculoskeletal: Negative Neurological: Negative Psychological: Negative Is Patient Immunocompromised?: No All Other Systems Reviewed And Are Negative: Yes Physical Exam - Summary Physical Exam Summary: Vital Signs Reviewed: Yes General: well developed, well nourished male sitting in the examining table w/o any apparent distress Eyes: Positive: Conjunctiva Clear - PERRLA, EOMI, fundi grossly normal ENT: Positive: Normal ENT inspection, Hearing grossly normal, Pharynx normal, Nasal congestion - edematous and erythematous nasal mucosa, Nasal drainage - yellowish drainage, TMs normal. Negative: Tonsillar swelling, Tonsillar exudate Neck: Positive: Supple, Nontender, No Lymphadenopathy Respiratory: no orthopnea or dyspnea. Able to speak in full sentences, no retractions or accessory muscle use, no tripod position, stridor, or head bobbing. Positive breath sounds bilaterally, Posterior left lung w/ mild wheezing, no rhonchi, or crackles, rales. Cardiovascular: Positive: RRR, No Murmur, Pulses Normal, Brisk Capillary Refill Abdomen Description: Positive: Nontender, No Organomegaly, Soft. Negative: CVA Tenderness (R), CVA Tenderness (L) Bowel Sounds: Positive: Present Musculoskeletal Exam: Normal Musculoskeletal: Positive: Strength Intact, ROM Intact, No Edema Neurological Exam: Normal Psychological Exam: Normal Skin Exam: Normal Triage Information Reviewed: Yes Vital Signs: Initial Vital Signs Temp 98.6 F 01/12/18 21:23 Pulse 73 01/12/18 21:23 Resp 16 01/12/18 21:23 BP 146/101 01/12/18 21:23 Pulse Ox 99 01/12/18 21:23 Diagnostic Evaluation - Laboratory O2 Sat by Pulse Oximetry: 99 Respiratory Course/Dx - Differential Dx/Diagnosis Provider Diagnoses: 1- Wheezing. 2-Cough. 3- rash. 4- Uncontrolled HTN Discharge - Discharge Plan Condition: Stable Disposition: HOME Prescriptions: Albuterol HFA INHALER* [Ventolin HFA Inhaler*] 1 - 2 puff INH Q6H PRN #1 mdi PRN Reason: wheezing predniSONE TAB* [Deltasone 20 MG TAB*] 20 mg PO DAILY #8 tab Triamcinolone 0.1% CREAM(NF) [Kenalog Cream 0.1%(NF)] 1 applic TOPICAL BID #1 tube Patient Education Materials: Poison Mari (ED), Low-Sodium Diet (ED), Wheezing ( ED) Referrals: Lilia Toth MD [Primary Care Provider] - 3 Days Additional Instructions: 1-Please take full course of antibiotic to avoid resistance. 2-Take Prednisone PO as directed continue using the albuterol inhaler. fist dose givne at the clinic. 3- If symptoms do not improve or worsen or your develop SOB with fever and severe wheezing please go immediately to the ER further evaluation and treatment. 4- F/u with your PCP in 2-3 days if not improvement of symptoms for further management. 5-Your BP is elevated today. please decrease salt in your diet, monitor BP and if it continues to be elevated please f/u with your PCP for further management - Billing Disposition and Condition Condition: STABLE Disposition: Home
[2018-01-12] MEDS ORDERED: Albuterol 2.5 MG/3 ML NEB.SOL* (0.083%) INH ONE (22:15)
[2018-01-12] MEDS ORDERED: predniSONE TAB* 20 MG PO ONE (22:15)
== END 2018-01-12 23:04 | disposition home or self-care (01) ==
LOC: UCEAST 20:55
DX: R06.2 Wheezing (principal); R05 Cough; R21 Rash and other nonspecific skin eruption; R09.81 Nasal congestion; I10 Essential (primary) hypertension; E78.5 Hyperlipidemia, unspecified; I47.1 Supraventricular tachycardia; Z82.49 Family history of ischemic heart disease and other diseases of the circulatory system
CPT/HCPCS: 99213; G0463; J7512